=== PATIENT | female | born 1995 | race Caucasian/White ===

== ENCOUNTER 2022-08-14 12:47 | Outpatient (CLI) | payer OTHER, SELFPAY ==
--- NOTE | 2022-08-14 13:00 | CRLHL7_ITS ---
For Patients: As a result of the Century Cures Act, medical imaging exams and procedure reports are released immediately into your electronic medical record. You may view this report before your referring provider. If you have questions, please contact your health care provider. INDICATION: First trimester scan, establish dates. COMPARISON: None. TECHNIQUE: Real-time ovalle-scale imaging of the pelvis was performed. FINDINGS: Sonographic imaging demonstrates a single living intrauterine gestation. The embryo demonstrates a regular cardiac rate measuring 161 beats per minute. The embryo`s crown-rump length measurement of 1.4 cm corresponds to a gestational age of 7 weeks 4 days with a sonographic due date of 03/29/2023. There is a normal-appearing yolk sac. There are no gross abnormalities noted within the embryo at this early state of development. The gestational sac has a normal appearance. There is no evidence of a perigestational hemorrhage. The amount of fluid within the sac appears appropriate for gestational age. The cervix is closed. The myometrium appears normal. The ovaries are of normal size. Corpus luteal cyst right ovary. There are no suspicious fluid collections noted in the cul-de-sac. IMPRESSION: Gestational age calculated at 7 weeks 4 days with a sonographic due date of 03/29/2023. Dictated by Shamar Sweet MD @ 08/14/2022 1:34:40 PM (Electronically Signed)
== END 2022-08-14 12:48 | disposition home or self-care (01) ==
LOC: US 12:51
PROVIDERS: PCP Physician Assistant; Visit Provider Physician Assistant
DX: Z34.91 Encounter for supervision of normal pregnancy, unspecified, first trimester (principal); Z3A.09 9 weeks gestation of pregnancy
CPT/HCPCS: 76817; 86592; 86703; 86762; 86787; 86803; 86850; 86900; 86901; 87086; 87340; 87491; 87591

== ENCOUNTER 2022-10-07 10:59 | Outpatient (CLI) | payer OTHER, SELFPAY ==
[2022-10-10 11:02] LABS: Dating Other; Insulin Req Maternal Diabetes No; Maternal Age At Delivery 29.3 yr; Maternal Race Nonblack; Maternal Screen Interpretation Screen Neg; MoM for AFP 0.99; Number of Fetuses Singleton; Patient's AFP 32 ng/mL; Smoking No
== END 2022-10-07 11:00 | disposition home or self-care (01) ==
LOC: NFLDREF 11:02
PROVIDERS: PCP Physician Assistant; Visit Provider Obstetrics & Gynecology
DX: Z34.92 Encounter for supervision of normal pregnancy, unspecified, second trimester (principal); Z3A.15 15 weeks gestation of pregnancy
CPT/HCPCS: 81511

== ENCOUNTER 2022-11-06 12:11 | Outpatient (CLI) | payer OTHER, SELFPAY ==
--- NOTE | 2022-11-06 12:15 | CRLHL7_ITS ---
For Patients: As a result of the Century Cures Act, medical imaging exams and procedure reports are released immediately into your electronic medical record. You may view this report before your referring provider. If you have questions, please contact your health care provider. INDICATION: Evaluate anatomy. COMPARISON: 08/14/2022 TECHNIQUE: Real time ovalle scale imaging of the fetus was performed as well as color Doppler analysis of the umbilical vessels. FINDINGS: Sonographic imaging demonstrates a single living intrauterine gestation. Fetus demonstrates a regular cardiac rate of 165 beats per minute. Fetus has a variable position. The placenta lies anteriorly. The edge of the placenta is low lying, less than 5 millimeters from the internal os. Amniotic fluid volume appears normal. Single deepest vertical pocket: 4.6 cm. The cervix is closed and measures 3.9 cm in length. The composite ultrasound gestational age is calculated at 20 weeks 3 days with an estimated sonographic due date of 03/23/2023. The estimated weight is 375 grams which lies at the 96th %. The following biometric measurements were obtained: Biparietal diameter: 4.8 cm/20 weeks 3 days 83rd% Head circumference: 17.5 cm/20 weeks 0 days 65th% Abdominal circumference: 15.8 cm/21 weeks 0 days 86th% Femur length: 3.4 cm/20 weeks 5 days 81st% The HC/AC ratio measures: 1.11 range (1.07-1.25) On anatomic survey, there is a normal appearance of the cerebral ventricles, cavum septi pellucidi, cisterna magna and cerebellum. The facial structures are somewhat difficult to visualize due to position. The cervical, thoracic and lumbar spine are well visualized and appear normal. There is a normal four-chamber heart view and the left and right ventricular outflow tracts appear normal. The diaphragm and stomach appear normal. The kidneys and bladder also appear normal. There is a normal three-vessel cord and cord insertion site. The four extremities appear normal. IMPRESSION: Sonographic gestational age 20 weeks 3 days and sonographic due date 03/23/2023. Sonographic age is 6 days ahead of the clinical age. Estimated weight 96th percentile. Abdominal circumference 86th percentile. No intrinsic abnormalities noted on anatomic survey. However, the facial views are somewhat difficult to obtain due to position and short-term follow-up suggested. The anterior placenta is low lying, located less than 1 cm from the internal cervical os. Dictated by Shamar Sweet MD @ 11/06/2022 2:12:46 PM (Electronically Signed)
== END 2022-11-06 12:12 | disposition home or self-care (01) ==
LOC: US 12:11
PROVIDERS: PCP Physician Assistant; Visit Provider Obstetrics & Gynecology
DX: O44.02 Complete placenta previa NOS or without hemorrhage, second trimester (principal); Z3A.19 19 weeks gestation of pregnancy
CPT/HCPCS: 76805; 76817

== ENCOUNTER 2023-01-01 11:22 | Outpatient (CLI) | payer OTHER, SELFPAY | END 2023-01-01 11:23 | disposition home or self-care (01) | LOC: NFLDREF 11:23 | PROVIDERS: PCP Physician Assistant; Visit Provider Obstetrics & Gynecology | DX: Z34.92 Encounter for supervision of normal pregnancy, unspecified, second trimester (principal); Z3A.27 27 weeks gestation of pregnancy | CPT/HCPCS: 86592 ==

== ENCOUNTER 2023-01-07 08:22 | Outpatient (CLI) | payer OTHER, SELFPAY | END 2023-01-07 08:23 | disposition home or self-care (01) | LOC: NFLDREF 01-08 04:51 | PROVIDERS: PCP Physician Assistant; Referring Provider Physician Assistant; Visit Provider Obstetrics & Gynecology | DX: Z34.90 Encounter for supervision of normal pregnancy, unspecified, unspecified trimester (principal) | CPT/HCPCS: 82951; 82952 ==

== ENCOUNTER 2023-03-02 09:32 | Outpatient (CLI) | payer OTHER, SELFPAY ==
--- NOTE | 2023-03-02 09:45 | CRLHL7_ITS ---
For Patients: As a result of the Century Cures Act, medical imaging exams and procedure reports are released immediately into your electronic medical record. You may view this report before your referring provider. If you have questions, please contact your health care provider. INDICATION: Third trimester scan, evaluate growth. COMPARISON: 11/06/2022 TECHNIQUE: Real time ovalle scale imaging of the fetus was performed. FINDINGS: Sonographic imaging demonstrates a single living intrauterine gestation. Fetus demonstrates a regular cardiac rate of 132 beats per minute. Fetus has a vertex position. The placenta lies anteriorly. Amniotic fluid volume appears normal and there is a single deepest vertical pocket: 6.8 cm. The estimated weight is 3450gm which lies at the 95th %. On the prior OB ultrasound exam dated 11/06/2022 the estimated weight was at the 96th%. BPD 68th percentile. HC 53rd percentile. AC greater than 97th percentile. FL 80th percentile. The HC/AC ratio measures 0.93 range (0.90-1.05). IMPRESSION: Sonographic gestational age 37 weeks 5 days and sonographic due date 03/18/2023. Sonographic age 11 days ahead of the clinical age. Estimated weight 95th percentile. Abdominal circumference greater than 97th percentile. Dictated by Shamar Sweet MD @ 03/02/2023 12:48:58 PM (Electronically Signed)
== END 2023-03-02 09:33 | disposition home or self-care (01) ==
LOC: US 09:33
PROVIDERS: Visit Provider Obstetrics & Gynecology
DX: Z34.93 Encounter for supervision of normal pregnancy, unspecified, third trimester (principal); Z3A.34 34 weeks gestation of pregnancy
CPT/HCPCS: 76816; 87081; 87653

== ENCOUNTER 2023-03-09 08:30 | Inpatient (IN) | payer OTHER, SELFPAY ==
[2023-03-09] VITALS (60 sets, daily range): BP systolic 84–145; BP diastolic 51–74; PULSE 95–145; RESP 13–18; TEMP 36.4–37.2; O2SAT 89–100; BMI 26.4
[2023-03-09] MEDS: LACTATED RINGERS 1000 ML 1,000 ML 125 ML IV ×4 (08:42→16:36)
--- NOTE | 2023-03-09 08:53 | P.OBHP_ITS ---
OB - H&P: HPI Labor/Induction History of Present Illness Time Seen by Provider: 08:53 Date Seen: 03/09/23 Chief Complaint: The patient is a 27 year old 2 para 1001 at 37.1 weeks gestation by US, who presents in labor after SROM at 0730 and regular contractions. She was found to be 5 cm on admission. Active movement. Denies vaginal bleeding or abnormal vaginal discharge. She strongly continues to desire TOLAC. 1. History of .? Arrest of descent,? 0P/asynclitic Operative report requested:? Arrest of descent after failed attempt at vacuum assisted vaginal delivery.? Double-layer closure. 2. Desires TOLAC, but conservative management with avoidance of operative vaginal delivery Likelihood of success:? 61.8% Consent signing: consent given for her review 01/29/23 and signed on admission EFW at 33 weeks = 95%.? Growth ultrasound at 36 weeks:? Cephalic, SDP 6.84 cm, EFW 3450 g =? 95.3%, HC 53%, BPD 68.3%, AC >97%, FL 80.3%.? 3. Migraines 4. Suspected macrosomia as noted in #2. 5.? Complete anterior placenta previa at 20 weeks.? In setting of one previous , risk of accreta with anterior previa = 11% * Referral for level 2 US for repeat evaluation of placentation and completion of anatomy scan (facial views not obtained):? anatomy normal, complete anterior previa.? EFW 87%, AC 83%.? * Repeat TVUS at 28 weeks for reassessment of placenta with MFM 12/18/22:? EFW 88 %, AC 80%.? Cephalic, SDP 6.8 cm, anterior marginal previa 7 mm from the internal os without findings suspicious for placenta accreta spectrum.? * Pelvic rest until further notice.? * Repeat US at 33 weeks (01/22/23):? Cephalic,?anterior placenta without previa, no findings suggestive of accreta, IRISH 21.4 cm,?EFW 95%, AC 99%.? No further visits with MFM required. ? 6.? Elevated 1 hr GTT = 145.? 3 hr GTT entirely normal. Chief complaint: Maternity Narrative: Marquise Gonzalez is a 27 year old female Meds Home Medications and Allergies Home Medications Medication Instructions Recorded Confirmed Type cholecalciferol (vitamin D3) 25 75 mcg PO QDAY 08/14/22 03/09/23 History mcg (1,000 unit) capsule prenat.vits,john,vvf-sudh-znfca 1 tab PO QDAY 08/14/22 03/09/23 History ubidecarenone-omega 3-vit E 25 1 cap PO QDAY 08/14/22 03/09/23 History mg-150 (90-60) mg-200 unit capsule (Co I-10-Kqixgsi E-Fish Oil) Allergies Allergy/AdvReac Type Severity Reaction Status Date / Time seasonal Allergy Intermediate Uncoded 03/02/23 10:23 OB - H&P: Exam Physical Exam: Vital signs: Physical exam: General: Patient in pain from contractions and tearful Psych: Alert and oriented x3 Heart: Tachycardia, Regular rhythm, no murmur rub or gallop Lungs: Clear to auscultation bilaterally Abdomen: Gravid with strong contractions. Appropriate tenderness with contractions but soft in between. No rebound, or guarding Skin: No lesions or rashes Lower extremities: +1 bilateral lower extremity edema Pelvic exam: /-2 OB - Problem Based A/P Additional Plan (1) Previous delivery affecting : Status: Acute (2) : Status: Acute Plan TOLAC - Patient presents in labor, SROM and 5 cm with regular contractions ? Hx of C/S x 1: at 39 weeks for arrest of descent, documented low transverse CD ? SVE 5/-2 ? [place] q2-3 minutes ? Counseling: We discussed the risks of trial of labor after section (TOLAC). There is a 0.5-0.9% chance of uterine rupture with one prior low transv erse section and 0.9-1.3% if there are 2 prior low transverse sections. Uterine rupture risk can be up to 3% with induction of labor with used of prostaglandins. Due to this risk, we will not be using prostaglandins for induction of labor. Pitocin will be used as needed. We discussed that in the event of uterine rupture, there could be catastrophic outcome including maternal hysterectomy, transfusion, infection, intensive care unit admission, maternal , , and mental handicap. There is up to a 25% risk of or neurological damage if rupture does occur. We also discussed that an elective repeat section has risks as well. These include bleeding, infection, damage to the uterus (possibly requiring a hysterectomy), and damage to bladder and bowel. Additionally, babies born by section have a slightly increased risk of needing oxygen temporarily compared to babies born vaginally. Overall, the probability of successful based on her personal history is 61.8% based on MU calculator. The factors that increase the probability of success include a prior vaginal and spontaneous labor. Factors that decrease the probability of success are history of section for labor dystocia, increased maternal age, gestational age greater than 40 weeks, maternal obesity, preeclampsia, and increased size. ? After counseling with all questions answered to patient?s satisfaction, she strongly desires trial of labor ? Plan: Admit for TOLAC due to labor; plan for augmentation placed contreras balloon/ start Pitocin ? Pain management plan: IT catheter
[2023-03-09 08:56] LABS: Basophils Percent Auto 0.4 % (0.0-3.0); Eosinophils Percent Auto 0.4 % (0.0-7.0); Hematocrit 34.9 % (33.0-51.0); Hemoglobin* 11.5 gm/dL (12.0-16.0); Immature Granulocytes Pct Auto 0.7 %; Lymphocytes Percent Auto 19.5 % (20-44); Mean Corpuscular HGB Conc 33 gm/dL (32-36); Mean Corpuscular Hemoglobin 29 pg (26-34); Mean Corpuscular Volume 86 fL (80-100); Monocytes Percent Auto 8.1 % (0.0-11.0); Neutrophils Percent Auto 70.9 % (42.0-72.0); Platelet Count* 292 K/uL (140-440); RDW Coefficient of Variation % 12.9 % (11.5-15.5); Red Blood Count 4.04 m/uL (4.00-5.20); White Blood Count* 13.57 K/uL (4.50-11.00)
[2023-03-09 09:02] LABS: Slide Review Reflex No
[2023-03-09] MEDS: LIDOCAINE 2% (PF) 5 ML VIAL EPIDURAL (09:13)
--- NOTE | 2023-03-09 09:14 | P.ANBPRC_ITS ---
[facility] Medical History (Updated 01/29/23 @ 12:40 by Ana Kee MD) Marginal placenta previa ?O44.20 - Partial placenta previa NOS or without hemorrhage, unspecified trimester (ICD-10) Placenta previa ?O44.00 - Complete placenta previa NOS or without hemorrhage, unspecified trimester (ICD-10) Migraine ?G43.909 - Migraine, unspecified, not intractable, without status migrainosus (ICD-10) Surgical History (Updated 11/06/22 @ 15:16 by Ana Kee MD) History of appendectomy ?Z90.49 - Acquired absence of other specified parts of digestive tract (ICD- 10) History of ?Z98.891 - History of uterine scar from previous surgery (ICD-10) Social History (Updated 08/14/22 @ 16:57 by Jessenia Anthony PA-C) 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 Smoking Status: Never smoker Little interest or pleasure in doing things: not at all Feeling down, depressed, or hopeless: not at all Meds Home Medications and Allergies Home Medications Medication Instructions Recorded Confirmed Type cholecalciferol (vitamin D3) 25 75 mcg PO QDAY 08/14/22 03/02/23 History mcg (1,000 unit) capsule prenat.vits,john,ltv-cahh-hgoyj 1 tab PO QDAY 08/14/22 03/02/23 History ubidecarenone-omega 3-vit E 25 1 cap PO QDAY 08/14/22 03/02/23 History mg-150 (90-60) mg-200 unit capsule (Co P-56-Zjifpoo E-Fish Oil) Allergies Allergy/AdvReac Type Severity Reaction Status Date / Time seasonal Allergy Intermediate Uncoded 03/02/23 10:23 Results Labs Labs: Laboratory Results - last 24 hr 03/09/23 08:45 WBC 13.57 H RBC 4.04 Hgb 11.5 L Hct 34.9 MCV 86 MCH 29 MCHC 33 RDW Coeff of Cara 12.9 Plt Count 292 Neut % (Auto) 70.9 Lymph % (Auto) 19.5 L [place] % (Auto) 8.1 Eos % (Auto) 0.4 Baso % (Auto) 0.4 Neut # (Auto) 9.60 H Lymph # (Auto) 2.60 [place] # (Auto) 1.10 H Eos # (Auto) 0.10 Baso # (Auto) 0.10 Vital Signs Vital Signs: Last Vital Signs Pulse 120 H 03/09/23 09:13 BP 117/68 03/09/23 09:13 Pulse Ox 89 03/09/23 09:07 Anesthesia Procedures Epidural Insertion Patient Location: OB Start Time: 08:55 Stop Time: 09:55 Start Date: 03/09/23 Stop Date: 03/09/23 Reason for Block: procedure for pain Patient Position: sitting Performed By: Kar Henry Preanesthetic Checklist: IV checked, risks and benefits discussed, surgical consent, monitors and equipment checked, pre-op evaluation, timeout performed and anesthesia consent Prep: chlorhexidine gluconate Monitoring: blood pressure monitoring, cardiac nurse specialist, continuous pulse oximetry and heart rate Approach: midline Vertebral Space: lumbar (1-5) Needle Type: Tuohy needle Injection Technique: continuous catheter (catheter) Needle gauge: 17 Needle Length (cm): 10 cm Needle Insertion Depth (cm): 5 Catheter Gauge: 19 Catheter Type: multi-orifice Catheter at skin depth (cm): 10 Test Dose Result: negative and lidocaine 1.5% with epinephrine 1 to 200,000
[2023-03-09] MEDS: ROPIVACAINE 0.2% 100 ml 100 ML 12 MG EPIDURAL (09:19)
[2023-03-09] MEDS: fentaNYL 100 MCG/2 ML inj 20 MCG INTRATHECA (09:54)
[2023-03-09] MEDS: OXYTOCIN 30 unit/500 ML in NS 30 UNIT/500 ML BAG IVPB (10:45)
--- NOTE | 2023-03-09 11:55 | PM.ANBPRC ---
[facility] Medical History (Updated 01/29/23 @ 12:40 by Ana Kee MD) Marginal placenta previa ?O44.20 - Partial placenta previa NOS or without hemorrhage, unspecified trimester (ICD-10) Placenta previa ?O44.00 - Complete placenta previa NOS or without hemorrhage, unspecified trimester (ICD-10) Migraine ?G43.909 - Migraine, unspecified, not intractable, without status migrainosus (ICD-10) Surgical History (Updated 11/06/22 @ 15:16 by Ana Kee MD) History of appendectomy ?Z90.49 - Acquired absence of other specified parts of digestive tract (ICD-10) History of ?Z98.891 - History of uterine scar from previous surgery (ICD-10) Social History (Updated 08/14/22 @ 16:57 by Jessenia Anthony PA-C) 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: Never smoker Little interest or pleasure in doing things: not at all Feeling down, depressed, or hopeless: not at all Meds Home Medications and Allergies Home Medications Medication Instructions Recorded Confirmed Type cholecalciferol (vitamin D3) 25 75 mcg PO QDAY 08/14/22 03/09/23 History mcg (1,000 unit) capsule prenat.vits,john,onf-saex-smiaj 1 tab PO QDAY 08/14/22 03/09/23 History ubidecarenone-omega 3-vit E 25 1 cap PO QDAY 08/14/22 03/09/23 History mg-150 (90-60) mg-200 unit capsule (Co B-89-Svlujjb E-Fish Oil) Allergies Allergy/AdvReac Type Severity Reaction Status Date / Time seasonal Allergy Intermediate Uncoded 03/02/23 10:23 Results Labs Labs: Laboratory Results - last 24 hr 03/09/23 08:45 WBC 13.57 H RBC 4.04 Hgb 11.5 L Hct 34.9 MCV 86 MCH 29 MCHC 33 RDW Coeff of Cara 12.9 Plt Count 292 Neut % (Auto) 70.9 Lymph % (Auto) 19.5 L [place] % (Auto) 8.1 Eos % (Auto) 0.4 Baso % (Auto) 0.4 Neut # (Auto) 9.60 H Lymph # (Auto) 2.60 [place] # (Auto) 1.10 H Eos # (Auto) 0.10 Baso # (Auto) 0.10 Blood Type A Positive Antibody Screen NEGATIVE Vital Signs Vital Signs: Last Vital Signs Pulse 123 H 03/09/23 11:48 BP 120/56 L 03/09/23 11:48 Pulse Ox 100 03/09/23 10:14 Anesthesia Procedures Intrathecal Patient Location: OB Start Time: 09:40 Stop Time: 09:55 Start Date: 03/09/23 Stop Date: 03/09/23 Reason for Block: procedure for pain Patient Position: left lateral decubitus Performed By: Edd Porter Prep: chlorhexidine gluconate Approach: midline Vertebral Space: lumbar (1-5) Needle Type: Sprotte Injection Technique: single-shot Needle gauge: 25 Needle Length (cm): 10 cm
--- NOTE | 2023-03-09 12:41 | P.OBPRC_ITS ---
Procedure Time Seen by Provider: 12:42 Date of procedure: 03/09/23 Will [facility] bill your pro fee for this procedure?: Yes Blood Loss Measurement Type: QBL Pankaj Used: No Procedure Description: Procedures Operation Date: 03/09/23 12:45 Repeat Delivery Complications: DELIVERY BY SECTION Date of Service: 03/09/2023 Delivery time: 1308 Summary: Admitted for labor in the setting of Previous x 1 CD at 37w1d. Patient desired TOLAC. She reports SROM at 0730 and on admission at 0830 she was noted to be 5/80/-2 and requesting epidural. Epidural was placed but unfortunately failed. An intrathecal was placed and patient had good relief. Patient was noted to be complete and at 0 station on my exam at 1015. Pushing was initiated shortly after. Fetus assessed to be in OP position and not amenable to manual rotation or different positioning throughout pushing. Patient pushed for approximately 2 hours with minimal descent (final station at +1 and 2cm of caput noted). Her anesthesia wore off towards the end of the 2nd hour of pushing and she was in significant pain and unable to push effectively She requested CD due to this. Fetus remained category 1 throughout her entire labor course. However, I agree that her chance of her a successful vaginal delivery is low due to inadequate pain control, OP positioning, anticipated LGA fetus, and the fact that her primary CD last time was for failure to descend with an OP fetus as well. The patient was consented for repeat section. She understands that the three main categories of risk include bleeding, infection, and damage to surrounding structures. Regarding infection, she understands that we will be delivering appropriate antibiotics, however that the risk of infection following section still is approximately 5%. She understands that though the risk is very low that there is always a risk of damage to the bladder, uterus, ovaries, fallopian tubes, bowels, ureters, or even the fetus. She understands that most injuries can be addressed at the time of surgery, however, such an injury may require additional surgeries to fix. Lastly, she understands that a section carries a risk of bleeding, and that while this bleeding can be addressed with multiple medical and surgical modalities, that there is the possibility of needing a blood transfusion.Lastly, she understands that a section does increase risks for future pregnancies and deliveries including, but not limited to, the risk of uterine rupture or placenta accreta. I also do not recommend TOLAC in the future after two deliveries for arrest of descent. Repeat Lower uterine transverse section, Pfannenstiel, Closed with suture, QBL 860 cc, Complications: 2 cm right uterine angle extension Findings: 2 cm diastasis recti, 2 x 3 cm uterine window noted at old hysterotomy site, filmy bladder adhesions to hysterotomy site. Normal bilateral ovaries and tubes 8,9 Weight 3620 g. Primary Indication: 1. Previous CD x 1 2. Failed TOLAC: arrest of descent Procedures: Repeat Lower uterine transverse section Specimens Removed: Placenta Surgeon: Olive Antonio MD Dial Polisher Surgeon: GOLDNE Arredondo Anesthesia: Spinal, TAP Report: Prophylactic antibiotic, 2 g of Ancef and 500 mg of Azithromycin was given before patient was taken to OR. After arrival to the operating room patient was placed in the supine position with left lateral tilt after administration of spinal anesthesia. Laparotomy A pfannenstiel incision was made through the anterior abdominal wall with #10 scalpel approximately 2 cm above the pubic symphysis. The incision was extended sharply with the #10 scalpel through the subcutaneous tissue to the level of fascia. The fascia was entered sharply with a #10 scalpel (Pfannenstiel) in the midline and extended in semi-elliptical fashion with Nuñez scissor. The underlying muscles were dissected off the overlying fascia by grasping the superior aspect of fascia with two raleigh clamps and blunt dissection was used along the midline. The fascia was further from rectus muscle with Nuñez scissor and/or cautery. In similar fashion, the lower aspect of fascia was also grasped with two Raleigh clamps and both blunt and sharp dissection was used to separate fascia from rectus muscle. The rectus was already due to 2 cm diastasis recti at midline. The peritoneum was then entered sharply with Milvia clamps and Metzenbaum scissors. The peritoneal incision was then extended superiorly and inferiorly under direct visualization with care being taken to avoid bladder and bowel. Filmy adhesions of bladder to hysterotomy noted. The peritoneal incision was enlarged sharply with electrocautery and bluntly by lateral traction from the surgeon's and dental assistant teacher's hand. Anival retractor was inserted into the abdomen. Delivery A bladder flap was developed by grasping with Qatari forcep and enter with Metzenbaun scissor. Then sharp and blunt dissection with Metzenbaum scissor and fingers were performed to drop the bladder low of the hysterotomy site. A low transverse hysterotomy was made then with #10 scalpel in the middle of uterine window and extended laterally and cephalad with fingers in a low transverse fashion with Manu Moser technique with care being taken to avoid injury to the fetus. The amniotic cavity (membrane) was then entered with spontaneous rupture of membrane, and the amniotic fluid was noted to be clear, fetus was delivered cephalic. With delivery of the baby, 2 cm right uterine angle extension was noted. Placenta was delivered spontaneously with steady traction on cord and manual separation of placenta from uterine wall. Closure Uterine cavity was cleaned after placental delivery with lap sponge x 2. The hysterotomy was closed in two layer with stitches using 0 vicryl with continuous locking stitches and continuous nonlocking 0 Monocryl. Two agxfai-mr-xkcyyg were placed in the middle of the hysterotomy. Hemostasis was achieved as needed with electrocautery and Jayme. The ovaries/tubes/uterine surface were evaluated. They were found to be normal. Anival retractor removed and hemostasis was confirmed again. Fascia was closed with running stitches using 0 PDS. Hemostasis was checked for and found to be adequate. The subcutaneous layer closure was unnecessary due to only 1 cm of subcutaneous tissue. The skin was closed with 4-0 Vicryl subcuticular sutures . The incision was cleaned and covered exofin and Mepilex dressing and the procedure considered terminate at this time. Intraoperative Complications: 2 cm Right lower uterine angle extension QBL: 860 cc Uterotonics: 40 u of pitocin and 1 g of TXA Disposition: The patient tolerated the procedure well. She was recovered in Obstetric PACU for close monitoring in stable condition, with a contracted uterus and normal transvaginal bleeding. The was sent to mother?s bedside/PACU. The placenta was not sent to pathology.
[2023-03-09] MEDS: CEFAZOLIN 2 GM INJ IVP (12:51)
[2023-03-09] MEDS: AZITHROMYCIN 500 MG in 0.9 % SODIUM CHLORIDE 250 ml 250 ML 255 MG IVPB (12:55)
[2023-03-09] MEDS: KETOROLAC 30 MG/ML inj IVP ×2 (13:45→19:30)
--- NOTE | 2023-03-09 14:27 | W.PM.NB ---
Nerve Block Nerve Block Time Seen by Provider: 14:15 Date Seen: 03/09/23 Type of block requested by surgeon for post-operative analgesia: TAP Side: bilateral Time out performed: Yes Verification of patient name: Yes Verification of date of : Yes Name of person performing procedure: priyanka Continuous monitoring Was continuous monitoring of O2 sat, B/P, supervisor brake repair, recorded every 15 minutes?: Yes Procedure Checklist: sterile prep, needles and gloves Ultrasound guided. Images saved: Yes Medications given in 5ml increments after negative aspiration: Marcaine %: 0.25 mL: 30 and Exparel mL: 10 Patient tolerated procedure well: Yes Block Charges Block Charge (with Pro Fee): TAP Bilateral Use of Ultrasound Machine for Block: Yes- US Guidance/pain block
--- NOTE | 2023-03-09 14:28 | W.ANESCHARGE ---
Anesthesia Charges Start Date/Time Anesthesia Start Date: 03/09/23 Anesthesia Start Time: 12:41 Stop Date/Time Anesthesia Stop Date: 03/09/23 Anesthesia Stop Time: 14:16 Summary Emergency: SENIOR WATER/WASTEWATER ENGINEER
[2023-03-10] VITALS (15 sets, daily range): BP systolic 89–108; BP diastolic 57–69; PULSE 80–95; RESP 16–18; TEMP 36.6–37.1; O2SAT 96–98
[2023-03-10] MEDS: KETOROLAC 30 MG/ML inj IVP ×2 (01:30→07:30)
[2023-03-10] MEDS: SODIUM CHLORIDE 0.9 % (FLUSH) 10 ML SYRINGE IVF (01:36)
[2023-03-10 07:54] LABS: Hemoglobin* 8.3 gm/dL (12.0-16.0)
--- NOTE | 2023-03-10 07:56 | P.DS_ITS ---
DS: Providers Provider Date Seen: 03/10/23 Date of admission: 03/09/23 08:30 Primary care physician: Not a Local Provider Admitting Clinician: Olive Antonio MD Attending Physician on discharge: Tracy Chacko APRN, CNM DS: Diagnosis Discharge Diagnosis (1) care and examination immediately after delivery: Status: Acute (2) Lactating mother: Status: Acute (3) Status post repeat low transverse section: Status: Acute Problem details: Failed TOLAC Exam Narrative: Exam Narrative: GENERAL APPEARANCE:? normal affect, alert, no distress MOOD:? appropriate CHEST:? clear to auscultation HEART:? regular rate and rhythm ABDOMEN:? soft, non-tender the uterine fundus is at Umbilicus, Midline and is appropriate for the stage of recovery. PERINEUM:? mild edema of the perineum EXTREMITIES:? normal and no edema INCISION: Dressing in place; clean, dry, and intact Const: Vital Signs, click to edit/add: Vital Signs - 24 hr 03/09/23 08:56 03/09/23 08:57 03/09/23 09:02 Temperature Pulse Rate Pulse Rate [Pulse Oximeter] Respiratory Rate Blood Pressure Blood Pressure [Ri ght Arm] Pulse Oximetry 94 100 100 Oxygen Delivery Me thod 03/09/23 09:04 03/09/23 09:06 03/09/23 09:07 Temperature Pulse Rate 133 H 123 H Pulse Rate [Pulse Oximeter] Respiratory Rate Blood Pressure 112/74 145/63 H Blood Pressure [Ri ght Arm] Pulse Oximetry 95 Oxygen Delivery Me thod 03/09/23 09:07 03/09/23 09:11 03/09/23 09:13 Temperature Pulse Rate 118 H 120 H Pulse Rate [Pulse Oximeter] Respiratory Rate Blood Pressure 118/68 117/68 Blood Pressure [Ri ght Arm] Pulse Oximetry 89 Oxygen Delivery Me thod 03/09/23 09:15 03/09/23 09:17 03/09/23 09:19 Temperature Pulse Rate 112 H 113 H 112 H Pulse Rate [Pulse Oximeter] Respiratory Rate Blood Pressure 120/70 116/71 117/70 Blood Pressure [Ri ght Arm] Pulse Oximetry Oxygen Delivery Me thod 03/09/23 09:21 03/09/23 09:23 03/09/23 09:29 Temperature Pulse Rate 110 H 113 H 107 H Pulse Rate [Pulse Oximeter] Respiratory Rate Blood Pressure 116/67 119/70 118/69 Blood Pressure [Ri ght Arm] Pulse Oximetry Oxygen Delivery Ks thod 03/09/23 09:41 03/09/23 09:46 03/09/23 09:51 Temperature Pulse Rate 113 H 112 H Pulse Rate [Pulse Oximeter] Respiratory Rate Blood Pressure 98/53 L 137/60 Blood Pressure [Ri ght Arm] Pulse Oximetry 100 100 Oxygen Delivery Ks thod 03/09/23 09:53 03/09/23 09:54 03/09/23 09:56 Temperature Pulse Rate 108 H 116 H 107 H Pulse Rate [Pulse Oximeter] Respiratory Rate Blood Pressure 119/62 121/61 117/66 Blood Pressure [Ri ght Arm] Pulse Oximetry Oxygen Delivery Ks thod 03/09/23 09:56 03/09/23 09:59 03/09/23 10:03 Temperature 97.7 F Pulse Rate 112 H 113 H Pulse Rate [Pulse Oximeter] Respiratory Rate 16 Blood Pressure 108/55 L 113/60 Blood Pressure [Ri ght Arm] Pulse Oximetry Oxygen Delivery Ks thod 03/09/23 10:04 03/09/23 10:07 03/09/23 10:09 Temperature Pulse Rate 116 H 117 H 115 H Pulse Rate [Pulse Oximeter] Respiratory Rate Blood Pressure 89/59 L 102/55 L 109/58 L Blood Pressure [Ri ght Arm] Pulse Oximetry Oxygen Delivery Ks thod 03/09/23 10:10 03/09/23 10:12 03/09/23 10:14 Temperature Pulse Rate 121 H 122 H Pulse Rate [Pulse Oximeter] Respiratory Rate Blood Pressure 103/61 112/65 Blood Pressure [Ri ght Arm] Pulse Oximetry 100 Oxygen Delivery Ks thod 03/09/23 10:18 03/09/23 10:29 03/09/23 11:01 Temperature 98.1 F Pulse Rate 125 H 109 H Pulse Rate [Pulse Oximeter] Respiratory Rate 16 Blood Pressure 102/64 115/69 Blood Pressure [Ri ght Arm] Pulse Oximetry Oxygen Delivery Ks thod 03/09/23 11:18 03/09/23 11:48 03/09/23 12:20 Temperature Pulse Rate 117 H 123 H 136 H Pulse Rate [Pulse Oximeter] Respiratory Rate Blood Pressure 119/59 L 120/56 L 98/60 Blood Pressure [Ri ght Arm] Pulse Oximetry Oxygen Delivery Me thod 03/09/23 14:20 03/09/23 14:25 03/09/23 14:30 Temperature 98.2 F Pulse Rate 107 H 99 101 H Pulse Rate [Pulse Oximeter] Respiratory Rate 16 18 18 Blood Pressure 103/62 102/62 102/64 Blood Pressure [Ri ght Arm] Pulse Oximetry 98 98 98 Oxygen Delivery Me thod 03/09/23 14:35 03/09/23 14:40 03/09/23 14:45 Temperature Pulse Rate 109 H 103 H 109 H Pulse Rate [Pulse Oximeter] Respiratory Rate 16 13 16 Blood Pressure 102/64 92/62 109/71 Blood Pressure [Ri ght Arm] Pulse Oximetry 98 99 98 Oxygen Delivery Me thod 03/09/23 14:50 03/09/23 15:05 03/09/23 15:05 Temperature 97.5 F L Pulse Rate 107 H Pulse Rate [Pulse Oximeter] 103 H Respiratory Rate 16 16 16 Blood Pressure 103/63 Blood Pressure [Ri ght Arm] 110/72 Pulse Oximetry 99 98 Oxygen Delivery Me thod 03/09/23 15:20 03/09/23 15:26 03/09/23 15:35 Temperature Pulse Rate Pulse Rate [Pulse Oximeter] 99 108 H Respiratory Rate 16 16 16 Blood Pressure Blood Pressure [Ri ght Arm] 110/69 101/62 Pulse Oximetry 98 98 Oxygen Delivery Me thod 03/09/23 15:50 03/09/23 16:05 03/09/23 16:20 Temperature 98.9 F Pulse Rate Pulse Rate [Pulse Oximeter] 102 H 109 H 109 H Respiratory Rate 16 16 16 Blood Pressure Blood Pressure [Ri ght Arm] 100/58 L 106/60 100/66 Pulse Oximetry 99 99 100 Oxygen Delivery Me thod 03/09/23 16:26 03/09/23 16:34 03/09/23 16:50 Temperature Pulse Rate Pulse Rate [Pulse Oximeter] 104 H 95 Respiratory Rate 16 16 16 Blood Pressure Blood Pressure [Ri ght Arm] 84/51 L 106/62 Pulse Oximetry 100 100 Oxygen Delivery Me thod 03/09/23 17:05 03/09/23 17:26 03/09/23 18:26 Temperature 98.2 F Pulse Rate Pulse Rate [Pulse Oximeter] 103 H Respiratory Rate 16 16 16 Blood Pressure Blood Pressure [Ri ght Arm] 106/66 Pulse Oximetry 100 Oxygen Delivery Me thod 03/09/23 19:30 03/09/23 20:00 03/09/23 20:30 Temperature 97.7 F Pulse Rate Pulse Rate [Pulse Oximeter] 100 Respiratory Rate 16 16 16 Blood Pressure Blood Pressure [Ri ght Arm] 94/54 L Pulse Oximetry 97 Oxygen Delivery Me thod Room Air 03/09/23 21:30 03/09/23 22:30 03/09/23 23:30 Temperature Pulse Rate Pulse Rate [Pulse Oximeter] Respiratory Rate 16 16 16 Blood Pressure Blood Pressure [Ri ght Arm] Pulse Oximetry Oxygen Delivery Me thod 03/10/23 00:30 03/10/23 01:22 03/10/23 01:30 Temperature 98.3 F Pulse Rate Pulse Rate [Pulse Oximeter] 84 Respiratory Rate 18 16 16 Blood Pressure Blood Pressure [Ri ght Arm] 96/57 L Pulse Oximetry 98 Oxygen Delivery Ks thod Room Air 03/10/23 02:30 03/10/23 03:30 03/10/23 04:30 Temperature Pulse Rate Pulse Rate [Pulse Oximeter] Respiratory Rate 16 18 18 Blood Pressure Blood Pressure [Ri ght Arm] Pulse Oximetry Oxygen Delivery Me thod 03/10/23 04:37 03/10/23 07:26 03/10/23 07:30 Temperature 98 F Pulse Rate Pulse Rate [Pulse Oximeter] 80 87 Respiratory Rate 18 16 16 Blood Pressure Blood Pressure [Ri ght Arm] 89/57 L 103/65 Pulse Oximetry 98 Oxygen Delivery Me thod Room Air Room Air Documenting provider has reviewed patient's vital signs: yes DS: Data Data Completed and Pending Labs on day of discharge: Labs from last 24 hours 03/10/23 03/09/23 06:55 08:45 WBC 13.57 H RBC 4.04 Hgb Pending 11.5 L Hct 34.9 MCV 86 MCH 29 MCHC 33 RDW Coeff of Cara 12.9 Plt Count 292 Neut % (Auto) 70.9 Lymph % (Auto) 19.5 L [place] % (Auto) 8.1 Eos % (Auto) 0.4 Baso % (Auto) 0.4 Neut # (Auto) 9.60 H Lymph # (Auto) 2.60 [place] # (Auto) 1.10 H Eos # (Auto) 0.10 Baso # (Auto) 0.10 Blood Type A Positive Antibody Screen NEGATIVE OB - DS: Summary Hospital Course Hospital Course: Marquise is a 27 y.o. at 37 1/7 weeks gestation who was admitted to [facility] for spontaneous onset of labor on 03/09/23. She had an uncomplicated repeat delivery after attempted TOLAC. She delivered a viable male . The patient feels well. ?The pain is well controlled with current medications. ?She has no new complaints. ?She is breast feeding and reports things are going well.? the patient has done well.? Vitals have been stable.? She has remained afebrile.? Has a good appetite, is tolerating a general diet. ?She is voiding without difficulty.? She is passing gas and has not had a bowel movement.? She is ambulating and denies any dizziness.? Has Small amount of rubra lochia. Planning NFP for prevention. Peripartum Data Procedures: Procedures Operation Date: 03/09/23 12:45 Actual Procedure Side Surgeon p Section Olive Antonio MD complications: none Wedron Gender: Male Infant Discharge Plan: Home Status at Discharge Functional status at discharge: independent ambulation Overall status at discharge: patient is progressing back to baseline Time Spent with Patient Time attestation: Total time spent providing and/or coordinating discharge services: Discharge Plan Discharge Disposition: Home, Self-Care Date of Admission: 03/09/23 08:30 Attending Provider on Discharge: Tracy Chacko Primary Care Provider: Provider,Not a Local Condition: Stable Anticipated Discharge Date/Time: 03/10/23 14:00 Discharge Medications: New acetaminophen 500 mg Tablet 1,000 mg PO Q6H PRN (Reason: Pain) Qty: 0 0RF docusate sodium 100 mg Capsule 100 mg PO DAILY Qty: 90 0RF ibuprofen 600 mg Tablet 600 mg PO Q6H PRN (Reason: Pain) Qty: 60 0RF oxycodone 5 mg Tablet 5 - 10 mg PO Q4H PRN (Reason: Pain) Qty: 10 0RF Continued prenat.vits,john,[id number] Tablet 1 tab PO QDAY Co [id number] E-Fish Oil 25-150-200 mg-mg-unit capsule 1 cap PO QDAY cholecalciferol (vitamin D3) 25 mcg (1,000 unit) capsule 75 mcg PO QDAY Discharge Orders: Discharge Order (Routine); Ordered 03/10/23 Ordered By: Tracy Chacko Patient Education: OB Over the Counter Medication Information, OB /Breast Feeding Additional Instructions: Discharge instructions were reviewed with the patient including signs and symptoms of infection and home going medications Lifting Restrictions: 20 pounds for 6 weeks No not submerge incision under water X 2 weeks? Nothing vaginally for 6 weeks: no tampons or intercourse Do not drive while taking narcotic pain medication(s) Off Work or School for 8 weeks 2-week visit: incision check, discuss infant feeding concerns, review control options and screen for anxiety/depression. 6-week visit for an annual exam. consultation services are available to all mothers and babies for the first year after delivery.? To make an appointment, please call [phone]. Activity Level: Activity as Tolerated Discharge Diet: Regular Follow Up Appointments: [facility] [Provider Group] Forms: MyHealth Info Instructions
[2023-03-10] MEDS: DOCUSATE SODIUM 100 MG CAPSULE PO (09:38)
[2023-03-10] MEDS: ACETAMINOPHEN 500 MG TABLET 1000 MG PO ×2 (10:31→16:32)
[2023-03-10] MEDS: IBUPROFEN 600 MG TABLET PO (13:29)
[2023-03-10] MEDS: SIMETHICONE 80 MG TAB.CHEW PO (18:00)
== END 2023-03-10 18:10 | disposition home or self-care (01) | DRG 787 ==
LOC: OB OUT 08:57 → OB 08:57
PROVIDERS: Admitting Provider Obstetrics & Gynecology; Visit Provider Obstetrics & Gynecology
PROC: 10D00Z1 Extraction of Products of Conception, Low, Open Approach (ICD-10-PCS; CPT 59514; principal; 2023-03-09 12:30)
DX: O34.211 Maternal care for low transverse scar from previous cesarean delivery (principal); D62 Acute posthemorrhagic anemia; O66.41 Failed attempted vaginal birth after previous cesarean delivery; O32.4XX0 Maternal care for high head at term, not applicable or unspecified; O90.81 Anemia of the puerperium; Z3A.37 37 weeks gestation of pregnancy; Z37.0 Single live birth; G89.18 Other acute postprocedural pain
CPT/HCPCS: 01967; 01968; 36415; 64488; 76942; 85018; 85025; 86850; 86900; 86901; 99140; A9270; C9290; J0456; J0690; J1100; J1885; J2274; J2370; J2405; J2590; J2765; J2795; J3010; J3490; J7050; J7120

== ENCOUNTER 2025-03-19 10:36 | Outpatient (CLI) | payer OTHER, SELFPAY ==
[2025-03-20 18:05] LABS: HPV Source Cervical; HPV, High Risk by TMA Not Detected
== END 2025-03-19 10:37 | disposition home or self-care (01) ==
PROVIDERS: Visit Provider Obstetrics & Gynecology
DX: Z12.4 Encounter for screening for malignant neoplasm of cervix (principal); Z11.51 Encounter for screening for human papillomavirus (HPV)
CPT/HCPCS: 87624; 87625; 88141; 88142

== ENCOUNTER 2025-08-06 15:35 | Outpatient (CLI) | payer OTHER, SELFPAY ==
--- NOTE | 2025-08-06 16:00 | CRLHL7_ITS ---
For Patients: As a result of the Cures Act, medical imaging exams and procedure reports are released immediately into your electronic medical record. You may view this report before your referring provider. If you have questions, please contact your health care provider. OB ULTRASOUND INDICATION: Dating and viability. TECHNIQUE: Real time grayscale imaging of the fetus was performed. Transvaginal. Transvaginal imaging performed to better demonstrate the endometrium and ovaries. LMP: 06/11/2025. JORGE by LMP: 03/18/2026. GA: 8 w, 0 d. Previous US: No. CRL: 2.0 cm. 8 w 4 d. JORGE: 03/14/2026. FHR: 178 BPM. Gestational sac: 3.8 cm. Appears within normal limits. Yolk sac: 3.8 mm. Appears within normal limits. Right ovary: N/V. Left ovary: Within normal limits. 4.3 x 2.3 x 2.3 cm. CL. IMPRESSION: 1. Single living intrauterine measures 8 weeks 4 days with sonographic due date 03/14/2026. 2. Corpus luteal cyst left ovary measures 2.3 x 2.0 x 2.1 cm. 3. Fundal subchorionic hemorrhage measures 0.9 x 3.5 x 2.3 cm. Shamar Sweet M.D. Diagnostic Radiologist [email or web address] ДМИТРИЙ/sandi junior/Dictated by: Shamar Sweet MD @ 08/06/2025 4:50:00 PM (Electronically Signed)
== END 2025-08-06 15:36 | disposition home or self-care (01) ==
LOC: US 15:37
PROVIDERS: Visit Provider Physician Assistant
DX: O34.81 Maternal care for other abnormalities of pelvic organs, first trimester (principal); N83.12 Corpus luteum cyst of left ovary; O20.9 Hemorrhage in early pregnancy, unspecified; Z3A.08 8 weeks gestation of pregnancy
CPT/HCPCS: 76817